=== PATIENT | female | born 1975 | race Caucasian/White ===

== ENCOUNTER 2020-01-23 07:35 | Outpatient (CLI) | payer OTHER, SELFPAY ==
--- NOTE | ~2020-01-23 | MM_ITS ---
EXAMINATION: MM screening fan BI w claire HISTORY: Screening mammogram TECHNIQUE: Craniocaudal and mediolateral oblique 3-D tomosynthesis images were obtained and synthetic 2-D images were generated. CAD analysis was submitted and interpreted. COMPARISON: 06/28/2017, 06/24/2016 BREAST PARENCHYMAL COMPOSITION: There are scattered areas of fibroglandular density. FINDINGS: There is no evidence of suspicious mass, calcification, or architectural distortion to sugg est malignancy in either breast. There has been no suspicious interval change. IMPRESSION: 1. No mammographic evidence of malignancy. 2. Recommend routine screening mammography in one year. BI-RADS Category 1: Negative Reviewed, dictated and finalized at location A.
== END 2020-01-23 07:36 | disposition home or self-care (01) ==
LOC: ANHIMG 07:37
PROVIDERS: PCP Physician Assistant; Visit Provider Physician Assistant
DX: Z12.31 Encounter for screening mammogram for malignant neoplasm of breast (principal)
CPT/HCPCS: 77063; 77067